=== PATIENT | female | born 1985 | race Caucasian/White ===

== ENCOUNTER 2018-04-16 00:03 | Inpatient (IN) ==
[~2018-04-16 00:03] MED LIST: BUTORPHANOL TARTRATE 2 MG/1 ML VIAL IVP PRN; CALCIUM CARBONATE 500 MG (TUMS) CHEWABLE TABLET PO PRN; CITRIC ACID/SODIUM CITRATE 30 ML CUP PO PRN; Carboprost Inj 250 MCG/ML AMP IM PRN; CefOXitin Inj 2 GM in Sodium Chloride 0.9% 100 ML IV PRN; FAMOTIDINE 20 MG/2 ML VIAL IVP PRN; LIDOCAINE HCL 2 % 10 ML JELLY URO-JECT TOPICAL PRN; LIDOCAINE W/ SODIUM BICARB 0.5 ML SYR SUBD PRN; Lidocaine 1% 10 MG/ML - 20 ML VIAL SUBCUT PRN; METHYLERGONOVINE MALEATE 0.2 MG/1 ML VIAL IM PRN; MISOPROSTOL 200 MCG TABLET RECTAL PRN; Metoclopramide Inj 10 MG/2 ML VIAL IV PRN; NALOXONE 0.4 MG/1 ML VIAL IVP PRN; Nalbuphine Inj 20 MG/ML Ampule IVP PRN; Naloxone Inj 0.01 MG in Normal Saline Flush 1 ML IVP PRN; ONDANSETRON 4 MG/2 ML VIAL IVP PRN; OXYTOCIN 10 UNIT/1 ML IM PRN; Oxytocin 20 Units + LR 20 UNIT/1,000 ML BAG IV SCH; Phenylephrine Inj 50 MCG in Normal Saline Flush 0.5 ML IVP PRN; TERBUTALINE SULFATE 1 MG/1 ML SDV SUBCUT PRN; diphenhydrAMINE 50 MG/1 ML VIAL IVP PRN; ePHEDrine Inj 5 MG in Normal Saline Flush 1 ML IVP PRN; fentaNYL Inj 100 MCG/2 ML VIAL IV PRN
[2018-04-16] MEDS ORDERED: Zolpidem Tab 5 MG TAB PO PRN (00:30)
[2018-04-16] MEDS ORDERED: Misoprostol Tab 100 MCG TAB VAGINAL SCH (00:30)
[2018-04-16] MEDS: Lactated Ringers-OB Dept 1,000 ML PRIMARY IV SCH ×2 (05:31→12:55)
[2018-04-16 05:47] LABS: Hematocrit [HCT] 35.5 % (37.0-47.0); Hemoglobin [HGB] 11.9 g/dL (12.0-16.0); MEAN CORPUSCULAR HGB CONC 33.5 g/dL (33-37); MEAN CORPUSCULAR VOLUME 86.4 FL (81-99); MEAN PLATELET VOLUME 11.7 FL (7.4-12.2); RED BLOOD COUNT 4.11 10^6/uL (4.20-5.40)
[2018-04-16] MEDS ORDERED: Oxytocin 20 Units + LR 20 UNIT/1,000 ML BAG IV SCH ×2 (07:45→16:40)
[2018-04-16] MEDS ORDERED: ePHEDrine Inj 50 MG/ML AMP ONE (09:15)
[2018-04-16] MEDS ORDERED: Fent/Bupiv 2mcg/0.0625% Epid 250 ML ONE (09:37)
--- NOTE | 2018-04-16 09:52 | CRNA.PROCE ---
Central Neuraxis Block Placemt - - Safety Measures: Time Out Taken, Site Verified - - Type of Block: Epidural Reason for Block: Analgesia Moniters Used During Block: SPO2, NIBP Positioning: Sitting Skin Prep Used: Betadine Skin Infiltration - Enter Amount Used in Comment Field: 1% Xylocaine (mL): Yes Spinal Needle Used: 18 Hustead 80 mm Local Anesthetic - Enter Amount Used in Comment Field: 1.5 % Xylocaine with Epinephrine 1:200,000 (mL): Yes (5ml test dose) Number of Centimeters Catheter Threaded: 4 Bioclusive Dressing Applied: Yes
[2018-04-16] MEDS ORDERED: BUTORPHANOL TARTRATE 2 MG/1 ML VIAL IVP PRN (09:53)
[2018-04-16] MEDS ORDERED: Nalbuphine Inj 20 MG/ML Ampule IVP PRN ×2 (09:53→16:40)
[2018-04-16] MEDS ORDERED: Phenylephrine Inj 50 MCG in Normal Saline Flush 0.5 ML IVP PRN (09:53)
[2018-04-16] MEDS ORDERED: NALOXONE 0.4 MG/1 ML VIAL IVP PRN (09:53)
[2018-04-16] MEDS ORDERED: diphenhydrAMINE 50 MG/1 ML VIAL IVP PRN ×2 (09:53→16:40)
[2018-04-16] MEDS ORDERED: ePHEDrine Inj 5 MG in Normal Saline Flush 1 ML IVP PRN (09:53)
[2018-04-16] MEDS ORDERED: Naloxone Inj 0.01 MG in Normal Saline Flush 1 ML IVP PRN (09:53)
[2018-04-16] MEDS ORDERED: fentaNYL 2 MCG/BUPIVACAINE 0.0625%/NS 0.9% 250 ML BAG EPIDURAL SCH (10:00)
--- NOTE | 2018-04-16 15:54 | OB.DEL.SUM ---
Delivery Note Delivery Summary: The patient was admitted for induction early this AM at 39 2/7 weeks EGA. She started at 3 cm dilation. Pitocin was started and epidural was placed. Amniotomy was then performed with return of clear fluid. The patient progressed slowly into active labor, but labored quickly after getting past 5 cm. She achieved complete dilation and pushed for about 20 min to of a viable female infant, Apgars 7/9, over an intact perineum from OA position. The placenta delivered promptly, spontaneously, intact, with a 3 vessel cord. EBL 250 ml. There were no complications.
[2018-04-16] MEDS ORDERED: CALCIUM CARBONATE 500 MG (TUMS) CHEWABLE TABLET PO PRN (16:40)
[2018-04-16] MEDS ORDERED: HYDROcodone-APAP 5 MG -325 MG TABLET PO PRN (16:40)
[2018-04-16] MEDS ORDERED: LANOLIN HPA 40 GM TUBE TOPICAL PRN (16:40)
[2018-04-16] MEDS ORDERED: BENZOCAINE/MENTHOL SPRAY 56 GM BOTTLE TOPICAL PRN (16:40)
[2018-04-16] MEDS ORDERED: ONDANSETRON 4 MG/2 ML VIAL IVP PRN (16:40)
[2018-04-16] MEDS ORDERED: LIDOCAINE HCL 2 % 10 ML JELLY URO-JECT TOPICAL PRN (16:40)
[2018-04-16] MEDS ORDERED: ACETAMINOPHEN 325 MG TABLET PO PRN (16:40)
[2018-04-16] MEDS ORDERED: DIPH,PERTUSS,TET(ADACEL) VAC/PF 0.5 ML (Tdap) IM ONE (16:40)
[2018-04-16] MEDS ORDERED: diphenhydrAMINE 25 MG CAPSULE PO PRN (16:40)
[2018-04-16] MEDS ORDERED: GLYCERIN/WITCH HAZEL 1 BOX TOPICAL PRN (16:40)
[2018-04-16] MEDS ORDERED: Ondansetron ODT Tab 4 MG TAB PO PRN (16:40)
[2018-04-16] MEDS: IBUPROFEN 800 MG TABLET PO PRN (17:51)
[2018-04-16] MEDS: DOCUSATE 100 MG CAPSULE PO SCH (20:46)
[2018-04-17] MEDS: IBUPROFEN 800 MG TABLET PO PRN ×2 (01:04→08:58)
[2018-04-17 04:49] LABS: Hematocrit [HCT] 32.5 % (37.0-47.0); Hemoglobin [HGB] 10.7 g/dL (12.0-16.0); MEAN CORPUSCULAR HEMOGLOBIN 28.5 PG (27-31); MEAN CORPUSCULAR HGB CONC 32.9 g/dL (33-37); MEAN CORPUSCULAR VOLUME 86.7 FL (81-99); MEAN PLATELET VOLUME 11.3 FL (7.4-12.2); RED BLOOD COUNT 3.75 10^6/uL (4.20-5.40)
--- NOTE | 2018-04-17 07:15 | DCSUMMARY ---
Hospitalization Summary Admit Date: 04/16/18 Discharge Date: 04/17/18 Primary Diagnosis:: Term , Delivered Primary Surgery and Date: Pitocin Induction of Labor Delivery Type: Vaginal Hospital Course: Successful induction at 39 2/7 weeks EGA. Uncomplicated labor, delivery, and course. Discharged to home on PPD 1 in good condition. / Postop Complications: None Complications: None Exam - Vitals Vital Signs: Vital Signs Temperature 98.4 F Temperature Source Oral Pulse Rate [Pulse Oximeter 85 Right] Pulse Rate 81 Respiratory Rate 20 Blood Pressure [Left Arm] 112/77 Blood Pressure [Right Arm] 122/69 Blood Pressure 111/69 Pulse Ox 96 Oxygen Delivery Method Room Air Height 5 ft 7 in Weight 158 lb
--- NOTE | 2018-04-17 07:17 | OB.PROGRES ---
Subjective Post Day: 1 Pain Management: PO Acosta Catheter: No Flatus: Yes Lochia Color: Rubra/Red Small 10-25 ml Diet: Regular Feeding Method: Exculsively Ambulating: Yes Concerns / Additional Information: Doing well this AM. Would like to go home today. Assesstment / Plan Assessment / Plan: PPD 1, doing well. Discharge to home.
[2018-04-17] MEDS ORDERED: MMR VACCINE 12500 UNIT/0.5 ML SUBCUT ONE (07:19)
[2018-04-17 08:20] VITALS: RESP 16
[2018-04-17] MEDS: DOCUSATE 100 MG CAPSULE PO SCH (08:58)
[2018-04-17] MEDS ORDERED: Prenatal Multivitamin Tab 1 TAB TAB PO SCH (09:00)
[2018-04-17 12:35] VITALS: BP 106/82; TEMP 98; O2SAT 96
--- NOTE | 2018-05-14 14:29 | CRNA.PROGR ---
Anesthesia Time - Procedure/Recovery Time Start Date: 04/16/18 End Date: 04/16/18 Anesthesia : Time In: 09:30 Anesthesia : Time Out: 09:45 Anesthesia : Total Time: 15 - Total Anesthesia Time Total Anesthesia Time (minutes): 15 - Other Weight: 71.668 kg Height: 5 ft 7 in Body Mass Index (BMI): 24.7 Physical Status: P2 Obstetrics: Planned vaginal delivery w/ neuraxial labor anesthesia/analog
== END 2018-04-17 16:55 | disposition home or self-care (01) | DRG 775 ==
LOC: OBIP 00:03
PROVIDERS: ADMIT Obstetrics & Gynecology; ATTEND Obstetrics & Gynecology